=== PATIENT | male | born 1995 | race Caucasian/White ===

== ENCOUNTER 2025-03-06 21:26 | Emergency (ER) | payer OTHER, SELFPAY ==
[~2025-03-06] VITALS: Ht 172.7 cm; Wt 79.5 kg
[2025-03-06 21:37] VITALS: TEMP 98.4
[2025-03-06 23:04] VITALS: BP 99/44
[2025-03-06 23:15] VITALS: O2SAT 91
== END 2025-03-06 23:13 | disposition home or self-care (01) ==
LOC: M ED 21:26 → EDBD 21:26 → M ED 23:13
DX: F12.10 Cannabis abuse, uncomplicated (principal); R06.4 Hyperventilation; Z88.0 Allergy status to penicillin